=== PATIENT | female | born 1945 | race Caucasian/White ===

== ENCOUNTER 2017-08-17 11:15 | Emergency (ER) | payer MEDICARE, MEDICAID ==
[~2017-08-17] VITALS: Ht 144.8 cm; Wt 75.3 kg
[~2017-08-17 11:15] MED LIST: LISINOPRIL5 MG ORAL
[2017-08-17] MEDS ORDERED: CLONAZEPAM0.5 MG ORAL (11:28)
[2017-08-17] MEDS ORDERED: PRAVASTATIN SOD80 M1 ORAL (11:28)
[2017-08-17] MEDS ORDERED: BYSTOLIC5 MG ORAL (11:28)
[2017-08-17] MEDS ORDERED: AZOR 5-40 MG T1 EACH ORAL (11:28)
--- NOTE | 2017-08-17 11:57 | Emergency Room Report ---
History of Present Illness General Chief Complaint: Earache Source: Patient Present Illness HPI Patient states that last week she had right ear pain. She states she saw her primary care physician who noted that she had cotton in her right ear. She states that she then saw an ear nose and throat physician and he removed the cotton. She has no problems with her right ear. However, she states that she has had pain in her left upper back and left ear. She did see an paper bag inspector and has had improvement in the left upper back pain was still has a very tender point and the bone just behind her left ear. She denies swelling. She denies fever or chills. She denies nausea or vomiting. She denies chest pain or shortness of breath. She has no other complaints. Allergies: Coded Allergies: No Known Allergies (Unverified , 07/07/13) Patient History Past Medical History: see triage record, HTN Social History: Denies: smoking, alcohol use, drug use Reviewed Nursing Documentation: PMH: Agreed; PSxH: Agreed Nursing Documentation-PMH Past Medical History: No History, Except For Hx Hypertension: Yes Review of Systems All Other Systems: negative except mentioned in HPI Physical Exam Vital Signs Date Time Temp Pulse Resp B/P (MAP) Pulse Ox O2 Delivery O2 Flow Rate FiO2 08/17/17 11:21 97.8 71 16 109/68 98 Room Air 97.9 Sp02 EP Interpretation: reviewed, normal General Appearance: no apparent distress, alert, GCS 15, non-toxic Head: normocephalic, atraumatic Eyes: bilateral eye normal inspection, bilateral eye PERRL ENT: hearing grossly normal, normal pharynx, no angioedema, normal voice, other - L. external canal with mild swelling and erythema. TM's normal bilaterally. Neck: full range of motion, supple/symm/no masses, other - Point ttp over the inferior L. occiput at the insertion of the SCM. Respiratory: chest non-tender, lungs clear, normal breath sounds, speaking full sentences Cardiovascular #1: regular rate, rhythm, no edema Gastrointestinal: normal bowel sounds, non tender, soft, non-distended, no guarding, no rebound Rectal: deferred Musculoskeletal: back normal, gait/station normal, normal range of motion, non- tender Neurologic: alert, oriented x3, responsive, motor strength/tone normal, sensory intact, speech normal Psychiatric: judgement/insight normal, memory normal, mood/affect normal, no suicidal/homicidal ideation Skin: normal color, no rash, warm/dry, well hydrated Medical Decision Making Diagnostic Impression: Primary Impression: Otitis externa Additional Impression: Neck pain, musculoskeletal ER Course This patient has mild otitis externa on the left external canal. She also has pinpoint tenderness at the insertion point of her sternocleidomastoid on outside. There is no evidence of mastoiditis. There is no evidence of malignant otitis externa. There is no evidence of otitis media. Overall, the patient is well-appearing and exam is benign. I will treat the patient with topical antibiotic eardrops. I will also give her a lidocaine patch and a muscle relaxant for her musculoskeletal neck pain. I do not suspect serious bacterial infection of any sort. The patient is given close return precautions and follow up instructions. Last Vital Signs Date Time Temp Pulse Resp B/P (MAP) Pulse Ox O2 Delivery O2 Flow Rate FiO2 08/17/17 11:21 97.8 71 16 109/68 98 Room Air 97.9 Status: improved Disposition: HOME, SELF-CARE Condition: Improved Referrals: NON PHYSICIAN (PCP) Patient Instructions: Otitis Externa ARUN CARCAMO D.O. August 17, 2017 11:57
[2017-08-17 12:02] VITALS: BP 109/68
[2017-08-17] MEDS ORDERED: CORTISPORIN EAR10 ML LEFT EAR (12:07)
[2017-08-17] MEDS ORDERED: LIDODERM700 M1 TOPIC (12:07)
[2017-08-17] MEDS ORDERED: CYCLOBENZAPRINE10 MG ORAL (12:07)
[2017-08-17] MEDS ORDERED: ACETAMINOPHEN-1 EAC1 ORAL (12:07)
[2017-08-17 12:32] VITALS: BP 109/68
== END 2017-08-17 12:33 | disposition home or self-care (01) ==
LOC: EMR 11:36
DX: H60.91 Unspecified otitis externa, right ear (principal); M54.2 Cervicalgia; I10 Essential (primary) hypertension
CPT/HCPCS: 99283

== ENCOUNTER 2017-11-14 01:14 | Emergency (ER) | payer MEDICARE, MEDICAID ==
[~2017-11-14] VITALS: Ht 157.5 cm; Wt 74.8 kg
[~2017-11-14 01:14] MED LIST changes: +ACETAMINOPHEN-1 EAC1 ORAL; +AZOR 5-40 MG T1 EACH ORAL; +BYSTOLIC5 MG ORAL; +CLONAZEPAM0.5 MG ORAL; +CORTISPORIN EAR10 ML LEFT EAR; +CYCLOBENZAPRINE10 MG ORAL; +LIDODERM700 M1 TOPIC; +PRAVASTATIN SOD80 M1 ORAL
[2017-11-14] MEDS ORDERED: LISINOPRIL5 MG ORAL (01:20)
[2017-11-14] MEDS ORDERED: Meclizine 25mg tab ORAL ONE (01:30)
[2017-11-14 01:40] VITALS: BP 151/80
[2017-11-14] MEDS ORDERED: SUMAtriptan 100mg tab ORAL ONE (02:30)
[2017-11-14 03:40] VITALS: BP 148/80
[2017-11-14] MEDS ORDERED: MECLIZINE HCL25 MG ORAL (03:58)
[2017-11-14 04:13] VITALS: BP 148/80
--- NOTE | 2017-11-14 08:49 | Diagnostic Imaging Report ---
Indications: Dizziness Technique: Spiral acquisitions obtained through the brain. Angled axial and coronal 5 x 5 mm slices were reconstructed. Total dose length product 1284.41 mGycm. CTDI vol(s) 70.38 mGy. Dose reduction achieved using automated exposure control Comparison: None. Findings: There is very slight age-related prominence of the ventricles and extra axial CSF spaces. Normal oscar-white differentiation. No acute intracranial hemorrhage or edema, mass effect, nor midline shift. The calvarium is intact. Visualized orbits and sinuses are unremarkable. Impression: Essentially unremarkable exam. Negative for acute intracranial bleed or mass effect This agrees with the preliminary interpretation provided overnight by [facility]. The CT scanner at [facility] is accredited by the [employer] and the scans are performed using protocols designed to limit radiation exposure to as low as reasonably achievable to attain images of sufficient resolution adequate for diagnostic evaluation.
--- NOTE | 2017-11-15 13:38 | Cardiology Report ---
APPROVED REPORT EKG Measurement Heart [id number] Normal sinus rhythm Nonspecific T wave abnormality Abnormal ECG
--- NOTE | 2017-11-19 07:42 | Emergency Room Report ---
History of Present Illness General Chief Complaint: Dizziness Source: Patient, EMS Present Illness HPI Patient is a 72-year-old female who presented after increased dizziness. Patient had prior history of vertigo. She reports having a spinning sensation. She denies any chest discomfort. The patient reports having worsened the dizziness with head movements. She denies prior history of CVA. She's had similar symptoms in the past.The patient had gradual onset of symptoms. Allergies: Coded Allergies: No Known Allergies (Unverified , 07/07/13) Patient History Past Medical History: see triage record Last Menstrual Period: n/a Reviewed Nursing Documentation: PMH: Agreed; PSxH: Agreed Nursing Documentation-PMH Hx Hypertension: Yes Review of Systems All Other Systems: negative except mentioned in HPI Physical Exam Sp02 EP Interpretation: reviewed, normal General Appearance: normal inspection, well appearing, no apparent distress, alert, GCS 15 Head: atraumatic ENT: normal ENT inspection, hearing grossly normal, normal voice Neck: normal inspection, full range of motion, supple, no bony tend Respiratory: normal inspection, lungs clear, normal breath sounds, no respiratory distress, no retraction, no wheezing Cardiovascular #1: regular rate, rhythm, no edema Gastrointestinal: normal inspection, normal bowel sounds, non tender, soft, no guarding, no hernia Genitourinary: no CVA tenderness Musculoskeletal: normal inspection, back normal, normal range of motion Neurologic: normal inspection, alert, responsive, speech normal Psychiatric: normal inspection, judgement/insight normal, mood/affect normal Skin: normal inspection, normal color, no rash Medical Decision Making Diagnostic Impression: Primary Impression: Dizziness ER Course Patient presented for dizziness. Differential diagnosis included but not limited to urinary tract infection, anemia, arrhythmia, abdominal aortic aneurysm, CVA, subarachnoid hemorrhage, benign positional vertigo. Patient has a benign exam and does not appear to require any further imaging or laboratory testing at this time. CT the head read by radiology showed no evidence of acute CVA. The patient was given meclizine with improvement in symptoms. The patient was offered admission and she declined. The patient is advised to follow up with primary care doctor in 1 -2 days. Patient is advised to return if any worsening condition or if any changes in status that are concerning. This report is dictated with [employer] associate professor of education software which may occasionally lead to discrepancies related to use of this software. Status: improved Disposition: HOME, SELF-CARE Condition: Stable Scripts Meclizine Hcl* (MECLIZINE*) 25 Mg Tablet 25 MG ORAL THREE TIMES A DAY, #30 TAB Prov: Mega Garza MD 11/14/17 Referrals: NON PHYSICIAN (PCP) Patient Instructions: Vertigo Mega Garza MD Nov 19, 2017 07:42
== END 2017-11-14 04:13 | disposition home or self-care (01) ==
LOC: EDBD 01:14 → EDUNIT# 01:14 → EMR 02:37
DX: R42 Dizziness and giddiness (principal); I10 Essential (primary) hypertension
CPT/HCPCS: 70450; 93005; 99284